=== PATIENT | male | born 1990 | race Caucasian/White ===

== ENCOUNTER 2020-08-04 07:18 | Emergency (ER) | payer MEDICAID ==
[~2020-08-04] VITALS: Ht 175.3 cm; Wt 59.9 kg
[2020-08-04 07:18] VITALS: BP_SYST 143
[2020-08-04] MEDS ORDERED: BACITRACIN 1 GM OINT TP ONE (08:45)
[2020-08-04 09:02] VITALS: BP_SYST 143
== END 2020-08-04 09:14 | disposition home or self-care (01) ==
LOC: SED 07:18
DX: S00.03XA Contusion of scalp, initial encounter (principal); Z88.6 Allergy status to analgesic agent; X99.1XXA Assault by knife, initial encounter; Y93.89 Activity, other specified; Y92.89 Other specified places as the place of occurrence of the external cause; Y99.8 Other external cause status
CPT/HCPCS: 70450-TC; 99284

== ENCOUNTER 2020-09-11 13:30 | Emergency (ER) | payer MEDICAID ==
[~2020-09-11] VITALS: Ht 177.8 cm; Wt 72.6 kg
[2020-09-11 13:30] VITALS: BP_SYST 116
--- NOTE | 2020-09-11 13:30 | NUR ---
BROUGHT IN BY [facility] AND PLACED IN BED #4, REPORT GIVEN TO NATHALIE
--- NOTE | 2020-09-11 13:35 | NUR ---
DR DURHAM AT BEDSIDE FOR EVALUATION
[2020-09-11] MEDS ORDERED: MORPHINE 2 MG/ML INJ. SYRINGE IVP ONE (13:45)
[2020-09-11] MEDS ORDERED: DIPHENHYDRAMINE INJ 50 MG/ML VIAL IVP ONE (13:45)
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
--- NOTE | 2020-09-11 13:48 | NUR ---
LILIA CUNNINGHAM AT BEDSIDE FOR INTERVIEW
[2020-09-11 15:45] VITALS: BP_SYST 116
--- NOTE | 2020-09-11 15:46 | NUR ---
Patient given written and verbal discharge instructions and verbalizes understanding. ER MD discussed with patient the results and treatment provided. Patient in stable condition. ID arm band removed. IV catheter removed intact and dressing applied, no active bleeding. No Rx of given. Patient educated on pain management and to follow up with PMD. Pain Scale 0/10. Opportunity for questions provided and answered. Medication side effect fact sheet provided.
== END 2020-09-11 15:46 | disposition home or self-care (01) ==
LOC: SED 13:30
DX: S20.211A Contusion of right front wall of thorax, initial encounter (principal); Z88.6 Allergy status to analgesic agent; Y08.89XA Assault by other specified means, initial encounter; Y93.89 Activity, other specified; Y92.89 Other specified places as the place of occurrence of the external cause; Y99.8 Other external cause status
CPT/HCPCS: 70450-TC; 71045; 72125-TC; 76376; 96374; 96375; 99285